=== PATIENT | male | born 1945 | race Two or more races ===

== ENCOUNTER → 2017-02-21 | Outpatient (REF) | payer MEDICARE ==
[2017-02-21 14:49] LABS: ANION GAP 9 MEQ/L (8-16); BLOOD UREA NITROGEN 15 MG/DL (7-18); CALCIUM LEVEL 8.1 MG/DL (8.8-10.2); CARBON DIOXIDE LEVEL 30 MEQ/L (21-32); CHLORIDE LEVEL 104 MEQ/L (98-107); CREATININE FOR GFR 0.88 MG/DL (0.70-1.30); GLOMERULAR FILTRATION RATE > 60.0 (>42); GLUCOSE, FASTING 262 MG/DL (83-110); POTASSIUM SERUM 4.1 MEQ/L (3.5-5.1); SODIUM LEVEL 143 MEQ/L (136-145)
== END ==
LOC: M SMT 11:53
PROVIDERS: ATTEND Nurse Practitioner Women's Health
DX: R31.29 Other microscopic hematuria (principal)
CPT/HCPCS: 80048; 81001; 87086; 88108; G0463

== ENCOUNTER → 2017-02-21 | Outpatient (REF) | payer MEDICARE | LOC: M SMT 11:03 | PROVIDERS: ATTEND Nurse Practitioner Women's Health | DX: R31.29 Other microscopic hematuria (principal) ==

== ENCOUNTER → 2017-03-02 | Outpatient (CLI) | payer MEDICARE, OTHER ==
[~2017-03-02] MED LIST: ISOVUE-370 76% 100ML VIAL (Q9967) As Ordered ONE
--- NOTE | 2017-03-02 15:21 | REP ---
Clinical: History of microhematuria. Technique: Axial precontrast, contrast enhanced, and delayed images of the abdomen and pelvis using 100 ml Isovue 370 intravenous contrast material with multiplanar re-formations. Findings: The kidneys demonstrate bilateral simple cysts including 4.3 cm right parapelvic cyst and 1.9 cm left upper pole cyst. There is a presumed 3.5 cm hyperdense lesion involving the mid polar left kidney with relatively stable Hounsfield density units throughout all sequences suggesting complex, proteinaceous cyst. Bilateral renovascular calcifications are identified and small 2-3 mm nonobstructing intrarenal calculi cannot be excluded. There is no perinephric stranding, hydroureteronephrosis or obstructing ureteral calculus and the bladder is unremarkable. Hepatomegaly is appreciated without focal hepatic lesion. Spleen demonstrates two inferior pole cysts measuring up to 4.7 cm maximal diameter. Pancreas, gallbladder, and bilateral adrenal glands are normal. The enteric system is without obstruction or acute inflammatory process. Pelvis demonstrates normal bladder and age appropriate prostate gland measuring 4 cm maximal diameter. No ascites. No free air. No significant adenopathy. Atherosclerotic changes to the vasculature without aortic aneurysm or dissection. Musculoskeletal structures demonstrate degenerative change without focal osseous abnormality. Lung bases demonstrate chronic changes without acute pleuroparenchymal process. Impression: 1. Kidneys demonstrate bilateral simple cysts as described above as well as a 3.5 cm hyperdense lesion in the left kidney which likely represents proteinaceous cyst and may warrant annual follow-up by ultrasound. Kidneys also demonstrate renovascular calcifications and small 2-3 mm nonobstructing intrarenal calculus cannot be excluded. 2. 4.7 cm inferior pole splenic cyst. 3. No further acute abdominopelvic pathology appreciated. Signed by Michael Lr MD 03/02/2017 03:13 P
== END ==
LOC: M RAD 14:04
PROVIDERS: ATTEND Nurse Practitioner Women's Health
DX: N28.89 Other specified disorders of kidney and ureter (principal); N28.1 Cyst of kidney, acquired; D73.4 Cyst of spleen
CPT/HCPCS: 74178; Q9967

== ENCOUNTER → 2017-03-14 | Outpatient (REF) | payer MEDICARE | LOC: M SMT 17:04 | PROVIDERS: ATTEND Urology | DX: R31.29 Other microscopic hematuria (principal) ==

== ENCOUNTER → 2020-06-06 | Outpatient (CLI) | payer MEDICARE ==
--- NOTE | 2020-06-06 14:38 | REP ---
INDICATION: SYSTEMIC INVOLVEMENT OF CONNECTIVE TISSUE, UNSP. COMPARISON: None. TECHNIQUE/RADIOTRACER AND DOSE: 21.7 mCi of Technetium-99m MDP was injected and standard whole-body bone scanning is acquired. FINDINGS: There is a normal distribution of skeletal tracer with uptake in bilateral kidneys and in the urinary bladder. There is no evidence to suggest skeletal metastatic disease. There is a focus of increased uptake in the left posterior 8th rib and another in the right posterior 9th rib. There is a focus of increased uptake in the left anterior eighth rib. These could relate to healing rib fractures. There is also focus of increased uptake in the posterior calf soft tissues on the left of uncertain significance. Chronic inflammation or old soft tissue trauma could generate disappearance. There is a focus of increased uptake in the right maxilla which may reflect. Dental disease. Slightly increased uptake is seen in the left maxillary sinus region IMPRESSION: Multiple foci of increased uptake is above. Metastatic disease is not excluded but rib fractures and paranasal sinus and periodontal disease associated uptake are felt to be more likely. The uptake focus in the left calf is of uncertain significance it should be correlated clinically.. <Electronically signed by William Campbell > 06/06/20 [id number]
== END ==
LOC: M RAD 09:36
PROVIDERS: ATTEND Internal Medicine
DX: M35.9 Systemic involvement of connective tissue, unspecified (principal)
CPT/HCPCS: 78306; A9503

== ENCOUNTER → 2023-07-21 | Outpatient (REF) | payer MEDICARE, MEDICAID ==
[2023-07-21 14:57] LABS: HEMATOCRIT 39.3 % (42.0-52.0); HEMOGLOBIN 12.6 g/dl (13.5-17.5); MEAN CORPUSCULAR HEMOGLOBIN 29.3 pg (27.0-33.0); MEAN CORPUSCULAR HGB CONC 32.1 g/dl (32.0-36.5); MEAN CORPUSCULAR VOLUME 91.4 fl (80.0-96.0); PLATELET COUNT, AUTOMATED 240 10^3/uL (150-450); WHITE BLOOD COUNT 7.3 10^3/uL (4.0-10.0)
[2023-07-21 15:27] LABS: HEMOGLOBIN A1c 6.7 % (4.0-6.0)
[2023-07-21 15:29] LABS: ALBUMIN 3.2 G/DL (3.2-5.2); ALKALINE PHOSPHATASE 187 U/L (46-116); ALT/SGPT 10 U/L (7.0-40); AST/SGOT 9 U/L (<34); BILIRUBIN,TOTAL 0.3 MG/DL (0.3-1.2); BLOOD UREA NITROGEN 20 MG/DL (9-23); CALCIUM LEVEL 8.4 MG/DL (8.3-10.6); CARBON DIOXIDE LEVEL 29 MMOL/L (20-31); CHLORIDE LEVEL 105 MMOL/L (98-107); CHOLESTEROL LEVEL 91 MG/DL (<200); CHOLESTEROL RISK RATIO 2.67 (<5); CREATININE FOR GFR 0.73 MG/DL (0.70-1.30); GLOMERULAR FILTRATION RATE > 60.0 (>42); GLUCOSE, FASTING 238 MG/DL (74-106); POTASSIUM SERUM 3.9 MMOL/L (3.5-5.1); SODIUM LEVEL 138 MMOL/L (136-145); TOTAL PROTEIN 6.8 G/DL (5.7-8.2); TRIGLYCERIDES LEVEL 100 MG/DL (<150)
== END ==
LOC: SKLAB7 14:09
PROVIDERS: ATTEND Internal Medicine
DX: E78.5 Hyperlipidemia, unspecified (principal); E55.9 Vitamin D deficiency, unspecified; E11.9 Type 2 diabetes mellitus without complications; I10 Essential (primary) hypertension

== ENCOUNTER → 2023-12-01 | Outpatient (REF) | payer MEDICARE, MEDICAID ==
[2023-12-01 14:00] LABS: BLOOD UREA NITROGEN 18 MG/DL (9-23); CALCIUM LEVEL 8.6 MG/DL (8.3-10.6); CARBON DIOXIDE LEVEL 31 MMOL/L (20-31); CHLORIDE LEVEL 105 MMOL/L (98-107); CREATININE FOR GFR 0.77 MG/DL (0.70-1.30); GLOMERULAR FILTRATION RATE > 60.0 (>42); GLUCOSE, FASTING 297 MG/DL (74-106); POTASSIUM SERUM 3.9 MMOL/L (3.5-5.1); SODIUM LEVEL 140 MMOL/L (136-145)
== END ==
LOC: SKLAB7 12:25
PROVIDERS: ATTEND Internal Medicine
DX: I50.9 Heart failure, unspecified (principal); R06.02 Shortness of breath; R00.2 Palpitations

== ENCOUNTER → 2023-12-01 | Outpatient (CLI) | payer MEDICARE, MEDICAID | LOC: M EKG 15:32 | PROVIDERS: ATTEND Nurse Practitioner Family | DX: R00.2 Palpitations (principal) ==

== ENCOUNTER → 2023-12-06 | Outpatient (REF) | payer MEDICARE, MEDICAID ==
[2023-12-06 10:53] LABS: HEMOGLOBIN A1c 7.6 % (4.0-6.0)
[2023-12-06 11:14] LABS: BLOOD UREA NITROGEN 21 MG/DL (9-23); CALCIUM LEVEL 8.7 MG/DL (8.3-10.6); CARBON DIOXIDE LEVEL 30 MMOL/L (20-31); CHLORIDE LEVEL 106 MMOL/L (98-107); CREATININE FOR GFR 0.81 MG/DL (0.70-1.30); GLOMERULAR FILTRATION RATE > 60.0 (>42); GLUCOSE, FASTING 240 MG/DL (74-106); POTASSIUM SERUM 3.6 MMOL/L (3.5-5.1); SODIUM LEVEL 144 MMOL/L (136-145)
[2023-12-06 11:17] LABS: THYROID STIMULATING HORMONE 0.536 uIU/ML (0.55-4.78)
== END ==
LOC: SKLAB7 07:40
PROVIDERS: ATTEND Internal Medicine
DX: I50.9 Heart failure, unspecified (principal); E11.9 Type 2 diabetes mellitus without complications

== ENCOUNTER → 2023-12-08 | Outpatient (REF) | payer MEDICARE, MEDICAID ==
[2023-12-08 13:52] LABS: HEMOGLOBIN A1c 7.2 % (4.0-6.0)
[2023-12-08 14:21] LABS: THYROID STIMULATING HORMONE 0.574 uIU/ML (0.55-4.78)
[2023-12-08 14:22] LABS: BLOOD UREA NITROGEN 23 MG/DL (9-23); CALCIUM LEVEL 8.9 MG/DL (8.3-10.6); CARBON DIOXIDE LEVEL 29 MMOL/L (20-31); CHLORIDE LEVEL 104 MMOL/L (98-107); CREATININE FOR GFR 0.89 MG/DL (0.70-1.30); GLOMERULAR FILTRATION RATE > 60.0 (>42); GLUCOSE, FASTING 182 MG/DL (74-106); POTASSIUM SERUM 4.1 MMOL/L (3.5-5.1); SODIUM LEVEL 140 MMOL/L (136-145)
== END ==
LOC: SKLAB7 07:09
PROVIDERS: ATTEND Internal Medicine
DX: I50.9 Heart failure, unspecified (principal); E11.9 Type 2 diabetes mellitus without complications

== ENCOUNTER → 2023-12-15 | Outpatient (REF) | payer MEDICARE, MEDICAID ==
[2023-12-15 11:30] LABS: BLOOD UREA NITROGEN 32 MG/DL (9-23); CALCIUM LEVEL 8.7 MG/DL (8.3-10.6); CARBON DIOXIDE LEVEL 29 MMOL/L (20-31); CHLORIDE LEVEL 108 MMOL/L (98-107); CREATININE FOR GFR 0.94 MG/DL (0.70-1.30); GLOMERULAR FILTRATION RATE > 60.0 (>42); GLUCOSE, FASTING 258 MG/DL (74-106); POTASSIUM SERUM 4.3 MMOL/L (3.5-5.1); SODIUM LEVEL 141 MMOL/L (136-145)
== END ==
LOC: SKLAB7 09:35
PROVIDERS: ATTEND Internal Medicine
DX: I50.9 Heart failure, unspecified (principal)

== ENCOUNTER → 2023-12-19 | Outpatient (REF) | payer MEDICARE, MEDICAID | LOC: SKLAB7 08:45 | PROVIDERS: ATTEND Internal Medicine | DX: I48.91 Unspecified atrial fibrillation (principal) ==

== ENCOUNTER → 2024-01-23 | Outpatient (REF) | payer MEDICARE, MEDICAID ==
[2024-01-23 09:29] LABS: HEMATOCRIT 42.5 % (42.0-52.0); HEMOGLOBIN 13.5 g/dl (13.5-17.5); MEAN CORPUSCULAR HEMOGLOBIN 28.4 pg (27.0-33.0); MEAN CORPUSCULAR HGB CONC 31.8 g/dl (32.0-36.5); MEAN CORPUSCULAR VOLUME 89.5 fl (80.0-96.0); PLATELET COUNT, AUTOMATED 191 10^3/uL (150-450); RED BLOOD COUNT 4.75 10^6/uL (4.30-6.10)
[2024-01-23 09:54] LABS: ALBUMIN 3.4 G/DL (3.2-5.2); ALKALINE PHOSPHATASE 204 U/L (46-116); ALT/SGPT 19 U/L (7.0-40); AST/SGOT 12 U/L (<34); BILIRUBIN,TOTAL 0.6 MG/DL (0.3-1.2); BLOOD UREA NITROGEN 32 MG/DL (9-23); CALCIUM LEVEL 8.8 MG/DL (8.3-10.6); CARBON DIOXIDE LEVEL 26 MMOL/L (20-31); CHLORIDE LEVEL 106 MMOL/L (98-107); CREATININE FOR GFR 0.93 MG/DL (0.70-1.30); GLOMERULAR FILTRATION RATE > 60.0 (>42); GLUCOSE, FASTING 235 MG/DL (74-106); SODIUM LEVEL 138 MMOL/L (136-145); TOTAL PROTEIN 6.9 G/DL (5.7-8.2)
== END ==
LOC: SKLAB7 07:19
PROVIDERS: ATTEND Internal Medicine
DX: I10 Essential (primary) hypertension (principal)

== ENCOUNTER → 2024-03-22 | Outpatient (REF) | payer MEDICARE, MEDICAID | LOC: SKLAB7 07:00 | PROVIDERS: ATTEND Internal Medicine | DX: E03.9 Hypothyroidism, unspecified (principal) ==

== ENCOUNTER → 2024-06-14 | Outpatient (REF) | payer MEDICARE, MEDICAID ==
[2024-06-14 09:50] LABS: HEMOGLOBIN A1c 10.4 % (4.0-6.0)
[2024-06-14 09:53] LABS: CHOLESTEROL RISK RATIO 3.01 (<5); HDL CHOLESTEROL 38.1 MG/DL (>40); LDL CHOLESTEROL 48.5 MG/DL (<100); NON-HDL-C 76.9 MG/DL
== END ==
LOC: SKLAB7 07:00
PROVIDERS: ATTEND Internal Medicine
DX: E11.9 Type 2 diabetes mellitus without complications (principal)

== ENCOUNTER → 2024-07-26 | Outpatient (REF) | payer MEDICARE, MEDICAID ==
[2024-07-26 08:30] LABS: HEMATOCRIT 40.6 % (42.0-52.0); HEMOGLOBIN 13.2 g/dl (13.5-17.5); MEAN CORPUSCULAR HEMOGLOBIN 30.5 pg (27.0-33.0); MEAN CORPUSCULAR HGB CONC 32.5 g/dl (32.0-36.5); MEAN CORPUSCULAR VOLUME 93.8 fl (80.0-96.0); PLATELET COUNT, AUTOMATED 219 10^3/uL (150-450); RED BLOOD COUNT 4.33 10^6/uL (4.30-6.10); WHITE BLOOD COUNT 6.7 10^3/uL (4.0-10.0)
[2024-07-26 09:04] LABS: ALBUMIN 3.2 G/DL (3.2-5.2); BILIRUBIN,TOTAL 0.4 MG/DL (0.3-1.2); CALCIUM LEVEL 8.8 MG/DL (8.3-10.6); CHOLESTEROL RISK RATIO 3.49 (<5); CREATININE FOR GFR 1.32 MG/DL (0.70-1.30); GLOMERULAR FILTRATION RATE 55.8 (>42); HDL CHOLESTEROL 35.2 MG/DL (>40); LDL CHOLESTEROL 52.2 MG/DL (<100); NON-HDL-C 87.8 MG/DL; POTASSIUM SERUM 5.4 MMOL/L (3.5-5.1); TOTAL PROTEIN 6.7 G/DL (5.7-8.2)
[2024-07-26 09:06] LABS: TOTAL 25(OH) VITAMIN D 30.9 NG/ML (20.0-100.0)
== END ==
LOC: SKLAB7 07:00
PROVIDERS: ATTEND Internal Medicine
DX: E78.5 Hyperlipidemia, unspecified (principal); E55.9 Vitamin D deficiency, unspecified; I10 Essential (primary) hypertension

== ENCOUNTER → 2024-07-30 | Outpatient (REF) | payer MEDICARE, MEDICAID | LOC: SKLAB7 11:17 | PROVIDERS: ATTEND Internal Medicine | DX: E87.5 Hyperkalemia (principal) ==

== ENCOUNTER → 2024-08-16 | Outpatient (REF) | payer MEDICARE, MEDICAID | LOC: SKLAB7 07:00 | PROVIDERS: ATTEND Internal Medicine | DX: E03.9 Hypothyroidism, unspecified (principal) ==

== ENCOUNTER → 2024-09-20 | Outpatient (REF) | payer MEDICARE, MEDICAID | LOC: SKLAB7 07:00 | PROVIDERS: ATTEND Internal Medicine | DX: E11.9 Type 2 diabetes mellitus without complications (principal) ==

== ENCOUNTER → 2025-01-10 | Outpatient (REF) | payer MEDICARE, MEDICAID ==
[2025-01-10 08:19] LABS: PLATELET COUNT, AUTOMATED 282 10^3/uL (150-450)
[2025-01-10 08:27] LABS: ESTIMATED AVERAGE GLUCOSE 212.0 MG/DL (60-110)
[2025-01-10 08:34] LABS: ALT/SGPT 13.0 U/L (7.0-40); AST/SGOT 15.0 U/L (<34); CALCIUM LEVEL 8.5 MG/DL (8.3-10.6); CARBON DIOXIDE LEVEL 24.0 MMOL/L (20-31); CHLORIDE LEVEL 108.0 MMOL/L (98-107); CREATININE FOR GFR 1.52 MG/DL (0.70-1.30); GLOMERULAR FILTRATION RATE 46.6 (>42); POTASSIUM SERUM 4.9 MMOL/L (3.5-5.1); SODIUM LEVEL 145.0 MMOL/L (136-145)
== END ==
LOC: SKLAB7 07:00
PROVIDERS: ATTEND Internal Medicine
DX: I50.9 Heart failure, unspecified (principal); E11.9 Type 2 diabetes mellitus without complications

== ENCOUNTER → 2025-01-11 | Outpatient (REF) | payer MEDICARE, MEDICAID ==
[2025-01-11 11:31] LABS: IRON (FE) 38.0 UG/DL (65-175)
[2025-01-11 11:53] LABS: VITAMIN B12 LEVEL 593.0 PG/ML (211-911)
== END ==
LOC: SKLAB7 09:44
PROVIDERS: ATTEND Internal Medicine
DX: D64.9 Anemia, unspecified (principal)

== ENCOUNTER → 2025-02-12 | Outpatient (REF) | payer MEDICARE, MEDICAID | LOC: SKLAB7 07:00 | PROVIDERS: ATTEND Internal Medicine | DX: E03.9 Hypothyroidism, unspecified (principal) ==

== ENCOUNTER → 2025-02-14 | Outpatient (REF) | payer MEDICARE, MEDICAID ==
[2025-02-14 10:58] LABS: IRON (FE) 84.0 UG/DL (65-175); PERCENT SATURATION 31.1 % (19.7-50.0)
== END ==
LOC: SKLAB7 08:39
PROVIDERS: ATTEND Internal Medicine
DX: D64.9 Anemia, unspecified (principal)

== ENCOUNTER → 2025-03-19 | Outpatient (REF) | payer MEDICARE, MEDICAID ==
[2025-03-19 11:50] LABS: ESTIMATED AVERAGE GLUCOSE 163.0 MG/DL (60-110)
== END ==
LOC: SKLAB7 03-14 07:00
PROVIDERS: ATTEND Internal Medicine
DX: E11.9 Type 2 diabetes mellitus without complications (principal)